=== PATIENT | male | born 1980 | race Caucasian/White ===

== ENCOUNTER 2020-03-26 17:10 | Emergency (ER) | payer OTHER, SELFPAY ==
[2020-03-26 17:17] VITALS: BP 138/87; PULSE 94; RESP 18; TEMP 37.2; O2SAT 100
--- NOTE | 2020-03-26 17:17 | ED.DENTAL ---
HPI - Dental/Oral General Chief complaint: Dental/Oral Stated complaint: tooth pain Time Seen by Provider: 03/26/20 17:17 Source: patient and RN notes reviewed History of Present Illness HPI Narrative: Patient is a 40-year-old male who presents the urgent care with complaints of right lower dental pain. Patient states that it started a few days ago and has been off and on. Patient states that the last time his tooth became infuck-ed he was able to see a physician at the [facility] who prescribed him tramadol and penicillin. Patient states that he has still been unable to get into a dentist to have the tooth fixed. States that originally had an amalgam filling which they switched out for composite, which in turn fell out. States that the pain does radiate up the right side of the neck and into the right ear. Denies of any fever, nausea, vomiting. No other acute complaints. No acute distress noted. Patient aware of the plan of care. Some parts of this dictation were generated by voice recognition software and may contain typographical and/or grammatical inaccuracies. Related Data Allergies Allergy/AdvReac Type Severity Reaction Status Date / Time codeine Allergy Mild N/V Verified 04/18/16 19:25 naproxen Allergy Unknown stomach Verified 04/18/16 19:25 problems Review of Systems Review of Systems: Narrative: CONSTITUTIONAL: Denies fever, chills, or sweats. EYES: Denies visual changes, redness, or discharge. ENT: Denies rhinorrhea, congestion, sore throat. Reports of right lower dental pain radiating to the right ear CARDIOVASCULAR: Denies chest pain, palpitations, or edema. RESPIRATORY: Denies cough or dyspnea. GASTROINTESTINAL: Denies abdominal pain, nausea, vomiting, or diarrhea. GENITOURINARY: Denies dysuria or hematuria. SKIN: Denies rash or itching. MUSCULOSKELETAL: Denies back pain, joint pain, or myalgia. NEUROLOGIC: Denies headache, numbness, or weakness. All other systems reviewed are negative, except as documented in HPI. PMFSH Social History Social History Gender identity (if verbalized by the patient): Male Comments At the time of my signature, I reviewed and agree with the nursing past medical, surgical, social, and family history. There is no relevant family history pertinent to the patient complaint. Exam Narrative: Exam Narrative: GENERAL: This is a well-nourished, well-developed patient, in no apparent distress. HEAD: normocephalic, atraumatic. EYES: PERRL. Sclera clear/white. Vision is grossly intact. EARS: External ears normal, auditory canals clear and without drainage, TMs normal without perforation. Hearing grossly intact. NOSE: External nose normal with no obvious nasal discharge, nares without redness, no rhinorrhea. THROAT: Mucous membranes moist, posterior pharynx clear. DENTAL: Notable avulsion to the posterior buccal aspect of right lower first molar with mild surrounding erythema and edema NECK: Neck supple SKIN: warm, intact with no suspicious lesions or rash, good texture and turgor. NEURO: awake, alert, and oriented to person, place and time. There were no obvious focal neurologic abnormalities. EXTREMITIES: No clubbing, cyanosis, or edema. Course Vital Signs Vital signs: Vital Signs Temperature 99 F 03/26/20 17:17 Pulse Rate 94 03/26/20 17:17 Respiratory Rate 18 03/26/20 17:17 Blood Pressure 138/87 03/26/20 17:17 Pulse Oximetry 100 03/26/20 17:17 Temperature 99 F 03/26/20 17:17 Pulse Rate 94 03/26/20 17:17 Respiratory Rate 18 03/26/20 17:17 Blood Pressure 138/87 03/26/20 17:17 Pulse Oximetry 100 03/26/20 17:17 Reviewed MDM - Dental/Oral MDM Narrative Medical decision making narrative: Advised the patient to complete oral antibiotic regimen as prescribed. Use tramadol as needed for pain. Do not take tramadol in conjunction with [id number] ibuprofen or other NSAIDs. Make sure to eat and drink with the medication. Continue your mouthwash
== END 2020-03-26 17:46 | disposition home or self-care (01) ==
PROVIDERS: Emergency Provider Nurse Practitioner Family
DX: K04.7 Periapical abscess without sinus (principal)
CPT/HCPCS: 99203; G0463

== ENCOUNTER 2021-10-10 13:57 | Emergency (ER) | payer OTHER, SELFPAY ==
[2021-10-10 14:04] VITALS: BP 137/83; PULSE 68; RESP 16; TEMP 36.2; O2SAT 100
--- NOTE | 2021-10-10 16:21 | ED.DENTAL ---
HPI - Dental/Oral General Chief complaint: Dental/Oral Stated complaint: dental pain Time Seen by Provider: 10/10/21 15:50 Source: RN notes reviewed History of Present Illness HPI Narrative: Patient presents emergency room from home for dental pain. Patient states that he has a carious tooth that it had a temporary filling that had fallen out last week states he had increased pain in his tooth which is located the right lower molar states has been seeing the dentist at the [facility] but they have been hard to get into and there had been plans for a root canal he denies any fevers or chills he states he does have some occasional green discharge from the tooth he denies any swelling of the face or any other symptoms states has been taking Tylenol for the pain at home with minimal relief Related Data Allergies Allergy/AdvReac Type Severity Reaction Status Date / Time codeine Allergy Mild N/V Verified 04/18/16 19:25 naproxen Allergy Unknown stomach Verified 04/18/16 19:25 problems Review of Systems Review of Systems: Gen.: Denies fevers or chills HEENT: See HPI Neuro: Denies headache Skin: Denies rash Endo: Denies DM PMFSH Past Medical History Medical History (Updated 10/10/21 @ 16:23 by Marin Oquendo DO) Patient denies significant medical history Social History Social History (Updated 10/10/21 @ 16:22 by Marin Oquendo DO) Smoking status: Never smoker Gender identity (if verbalized by the patient): Male Exam Narrative: APPEARANCE: No acute distress, nontoxic, resting in bed HEENT: Normocephalic, atraumatic, TMs clear bilaterally, nares patent, oral mucosa moist, airway patent, tooth #31 is carious and tender to palpation mild erythema with no exudate or fluctuance of the gum RESPIRATORY: No respiratory distress MUSCULOSKELETAl: Moves all extremities. NEURO: Awake and alert. Following commands, speech normal, no focal deficits SKIN:: Warm, dry. Normal Color PSYCHIATRIC: Normal affect/mood Course Course Emergency Course: Discussed with patient results of workup and diagnosis. Discussed need for follow-up with primary care, proper use of medication, and reasons to return to the emergency department. Patient understands and agrees to current treatment plan Patient states has been taking Tylenol for pain at home states he is unable to take NSAIDs secondary to having a previous injury in which part of his bowels had to be removed this time reviewed the patient's been on tramadol for we will give 6 short amount of tramadol for his pain Vital Signs Vital signs: Vital Signs Temperature 97.2 F L 10/10/21 14:04 Pulse Rate 68 10/10/21 14:04 Respiratory Rate 16 10/10/21 14:04 Blood Pressure 137/83 10/10/21 14:04 Pulse Oximetry 100 10/10/21 14:04 Oxygen Delivery Room Air 10/10/21 14:04 Temperature 97.2 F L 10/10/21 14:04 Pulse Rate 68 10/10/21 14:04 Respiratory Rate 16 10/10/21 14:04 Blood Pressure 137/83 10/10/21 14:04 Pulse Oximetry 100 10/10/21 14:04 Oxygen Delivery Room Air 10/10/21 14:04 Discharge Plan Discharge Clinical Impression: Dental caries, Dental abscess Patient Disposition: Home, Self-Care Condition: Stable Instructions: Antibiotic Form, Dental Abscess (ED) Additional Instructions: Return for increasing pain fever or any other symptoms of concern Prescriptions: New penicillin V potassium 500 mg tablet 500 mg PO TID Qty: 40 0RF tramadol 50 mg tablet 50 mg PO Q4H PRN (Reason: pain) Qty: 6 0RF No Action tramadol 50 mg tablet 50 mg PO Q6H PRN (Reason: pain) Qty: 5 0RF amoxicillin-pot clavulanate [Augmentin] 875-125 mg tablet 1 tablet PO Q12H Qty: 20 0RF Follow-up/Referrals: [facility] [place] [Outside] [facility] [Outside] - 2 Days [facility] [Primary Care Provider] - Stand Alone Forms: Work/School Release IP Time of Disposition: 16:24
[2021-10-10] MEDS: PENICILLIN V POTASSIUM 250 MG TABLET 500 MG PO (16:37)
[2021-10-10] MEDS: HYDROcodone/acetaminophen (*CRX) 5-325 MG TABLET 1 TAB PO (16:37)
== END 2021-10-10 16:40 | disposition home or self-care (01) ==
PROVIDERS: Emergency Provider Emergency Medicine
DX: K04.7 Periapical abscess without sinus (principal); K02.9 Dental caries, unspecified
CPT/HCPCS: 99283; A9270

== ENCOUNTER 2023-11-21 18:08 | Emergency (ER) | payer OTHER, SELFPAY ==
--- NOTE | ~2023-11-21 | XR_ITS ---
XR shoulder LT min 2V Ordering provider: Eddie Whitten MD History: . biceps injury . Comparison: September 20, 2008 FINDINGS: BONES: No acute fracture or dislocation. Ossifications seen in the inferior aspect of the glenoid cav ity and adjacent to the humeral head which may be due to old fracture or synovitis chondromatosis. JOINT SPACES: The acromioclavicular joint is normal. The glenohumeral joint is normal. The SOFT TISSUES: Normal. IMPRESSION: No acute osseous abnormality left shoulder. Reviewed, dictated and finalized at location A.
[2023-11-21 18:30] VITALS: BP 131/97; PULSE 93; RESP 16; TEMP 36.4; O2SAT 100
--- NOTE | 2023-11-21 20:42 | ED.GENADULT ---
HPI - General Adult General Chief complaint: Extremity Injury, Upper Stated complaint: bicep injury Time Seen by Provider: 11/21/23 19:54 History of Present Illness HPI narrative: Patient is a 43-year-old male who presents ER with concerns for biceps injury on left side. 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 There is obvious deformity with the lack of tendon over the proximal aspect of the left upper extremity. No shoulder pain. No numbness or tingling. Related Data Allergies Allergy/AdvReac Type Severity Reaction Status Date / Time codeine Allergy Mild N/V Verified 04/18/16 19:25 naproxen Allergy Unknown stomach Verified 04/18/16 19:25 problems Review of Systems Constitutional: Constitutional: Reports no additional constitutional complaints Gastrointestinal: Gastrointestinal: Reports no additional gastrointestinal complaints Genitourinary: Genitourinary: Reports no additional male genitourinary complaints Musculoskeletal: Musculoskeletal: Denies arthralgias, Denies joint swelling and Reports muscle cramps Integumentary/Breasts: Skin/Breast: Reports system reviewed and no additional complaints, except as docu PMFSH Past Medical History Medical History (Updated 11/21/23 @ 20:57 by Eddie Whitten MD) Patient denies significant medical history Social History Social History (Updated 10/10/21 @ 16:22 by Marin Oquendo, DO) Smoking status: Never smoker Gender identity (if verbalized by the patient): Male Exam Narrative: GENERAL: Well-appearing, well-nourished, and in no acute distress. HEAD: Normocephalic, atraumatic. ENT: Mucous membranes moist. EXTREMITIES: Left upper extremity with biceps deformity proximally when flexing at the elbow. Tender over the area and has pain with range of motion. No deformity at the elbow. Normal right upper extremity. SKIN: Warm, dry, no rash. NEURO: Alert and oriented x3. PSYCH: Normal mood and affect. Course Course Emergency Course: [facility] and say they are only open for transfers regarding psychiatric care. Patient given [place] for pain and will be placed in a sling for comfort. I will give him our orthopedics phone number so he can attempt to follow[facility]up if [facility] issues with [facility]. Vital Signs Vital signs: Vital Signs Temperature 97.6 F 11/21/23 18:30 Pulse Rate 93 11/21/23 18:30 Respiratory Rate 16 11/21/23 18:30 Blood Pressure 131/97 H 11/21/23 18:30 Pulse Oximetry 100 11/21/23 18:30 Oxygen Delivery Room Air 11/21/23 18:30 Temperature 97.6 F 11/21/23 18:30 Pulse Rate 93 11/21/23 18:30 Respiratory Rate 16 11/21/23 18:30 Blood Pressure 131/97 H 11/21/23 18:30 Pulse Oximetry 100 11/21/23 18:30 Oxygen Delivery Room Air 11/21/23 18:30 Medical Decision Making Vital Signs Vital Signs: Vital Signs Temperature 97.6 F 11/21/23 18:30 Pulse Rate 93 11/21/23 18:30 Respiratory Rate 16 11/21/23 18:30 Blood Pressure 131/97 H 11/21/23 18:30 Pulse Oximetry 100 11/21/23 18:30 Oxygen Delivery Room Air 11/21/23 18:30 Temperature 97.6 F 11/21/23 18:30 Pulse Rate 93 11/21/23 18:30 Respiratory Rate 16 11/21/23 18:30 Blood Pressure 131/97 H 11/21/23 18:30 Pulse Oximetry 100 11/21/23 18:30 Oxygen Delivery Room Air 11/21/23 18:30 Imaging Data Radiologist's impression: ITS Impressions Shoulder X-Ray 11/21/23 20:32 IMPRESSION: No acute osseous abnormality left shoulder. Discharge Plan Discharge Clinical Impression: Biceps rupture, proximal Patient Disposition: Home, Self-Care Condition: Stable Instructions: Repairs of the Biceps and Triceps Tendons (DC), Tendon Rupture (ED) Additional Instructions: Contact your PCP to be referred to a new orthopedist at the [facility]. You may also use a private orthopedic surgeon her
[2023-11-21] MEDS: HYDROcodone/acetaminophen (*CRX) 5-325 MG TABLET 1 TAB PO (20:50)
[2023-11-21 21:06] VITALS: BP 121/81; PULSE 93; O2SAT 100
== END 2023-11-21 20:30 | disposition home or self-care (01) ==
PROVIDERS: Emergency Provider Emergency Medicine
DX: S46.212A Strain of muscle, fascia and tendon of other parts of biceps, left arm, initial encounter (principal); X50.0XXA Overexertion from strenuous movement or load, initial encounter
CPT/HCPCS: 73030; 99283; A4565; A9270

== ENCOUNTER 2025-03-04 13:52 | Emergency (ER) | payer OTHER, SELFPAY ==
--- NOTE | ~2025-03-04 | XR_ITS ---
EXAMINATION: XR shoulder LT min 2V, 03/04/2025 14:35 CDT HISTORY: shoulder pain-ant/pos COMPARISON: No comparisons available. Findings: No acute fracture or malalignment. Severe degenerative changes with calcified loose bodies noted. Soft tissues unremarkable. Impression: No acute fracture or malalignment. Reviewed, dictated and finalized at location P. Impression: No acute fracture or malalignment.
[2025-03-04 13:54] VITALS: BP 138/83; PULSE 83; RESP 16; TEMP 36.6; O2SAT 100
--- NOTE | 2025-03-04 14:32 | ED.UPPEXIN ---
HPI - Extremity Injury (Upper) General Chief Complaint: Extremity Injury, Upper Stated Complaint: left shoulder pain Time Seen by Provider: 03/04/25 14:02 Source: patient Mode of arrival: ambulatory Limitations: no limitations History of Present Illness HPI narrative: Tj is a 44-year-old male patient presenting to the ER today with complaints of left shoulder pain. Reports he was standing on a ladder and started to slip in clotting self with his left arm. Is complaining of pain to the anterior and posterior right shoulder. Had taking 1 hydrocodone 1 hour prior to arrival. Is having difficulty lifting his arm due to pain. Denies any neck pain. Rates pain currently an 8/10. History of left biceps tear. Related Data Allergies Allergy/AdvReac Type Severity Reaction Status Date / Time codeine Allergy Mild N/V Verified 03/04/25 13:55 naproxen Allergy Unknown stomach Verified 03/04/25 13:55 problems Review of Systems Review of Systems: Pertinent positives per HPI. Patient denies any fever, chills, rash, headache, visual changes, dizziness, cough, runny nose, sore throat, shortness of breath, chest pain, palpitations, nausea, vomiting, diarrhea, constipation, abdominal pain, or any urinary issues. [facility] Past Medical History Medical History Patient denies significant medical history Social History Social History Smoking status: Never smoker Gender identity (if verbalized by the patient): Male Comments At the time of my signature, I reviewed and agree with the nursing past medical, surgical, social, and family history. There is no relevant family history pertinent to the patient complaint. Exam Narrative: General: Well-developed, well nourished, in no apparent distress Head: Normocephalic, atraumatic. Cardio: Regular rate and rhythm, s1 and s2 normal, no murmur appreciated. Resp: Clear to auscultation bilaterally, no rhonchi, rales, wheezing or rubs. Musculoskeletal: No deformity, tender to palpation over the anterior and posterior left shoulder, unable to raise is arm above his head due to pain, limited range of motion due to pain, negative drop-arm test, hand grasp slightly weaker on the left when compared to the right, peripheral pulse strong, no edema, no cyanosis, normal gait and station Course Course Emergency Course: Portions of this record may have been created with voice recognition software. Vital Signs Vital signs: Vital Signs Temperature 36.6 C 03/04/25 13:54 Pulse Rate 83 03/04/25 13:54 Respiratory Rate 16 03/04/25 13:54 Blood Pressure 138/83 03/04/25 13:54 Pulse Oximetry 100 03/04/25 13:54 Temperature 36.6 C 03/04/25 13:54 Pulse Rate 83 03/04/25 13:54 Respiratory Rate 16 03/04/25 13:54 Blood Pressure 138/83 03/04/25 13:54 Pulse Oximetry 100 03/04/25 13:54 Vital signs reviewed MDM - Extremity Injury (Upper) MDM Narrative Medical decision making narrative: At the time of visit patient is resting comfortably on the exam table. Patient appears to be nontoxic. Complaints of left shoulder pain. Reports he was standing on a ladder and started to slip in clotting self with his left arm. Is complaining of pain to the anterior and posterior right shoulder. Had taking 1 hydrocodone 1 hour prior to arrival. Is having difficulty lifting his arm due to pain. Denies any neck pain. Rates pain currently an 8/10. History of left biceps tear. On exam patient has tenderness to palpation over the anterior and posterior shoulder, is unable to lift his arm up above his head due to pain. Has good peripheral pulse, hand grasp in the left hands slightly weaker than the right hand. Diagnostics: X-ray of the left shoulder is negative for any acute fracture or malalignment. Does show severe degenerative changes Plan: I suspect patient has a left arm muscle strain. Will send in prescription for hydrocodone for pain. Arm sling was given. Supportive measures were discussed with the patient and they voiced understanding discharge instructions and agrees to treatment plan. Return precautions reviewed Differential Diagnosis Differential diagnosis: Likely dislocation of shoulder and other (Shoulder strain, shoulder sprain, AC joint separation, humerus fracture, rotator cuff injury) Imaging Data Radiologist's impression: ITS Impressions Shoulder X-Ray 03/04/25 14:50 Impression: No acute fracture or malalignment. Discharge Plan Discharge Clinical Impression: Strain of left shoulder Patient Disposition: Home Condition: Stable Instructions: Antibiotic Form, Shoulder Sprain (ED) Additional Instructions: X-ray shows no acute fracture or malalignment of the left shoulder-does show some severe degenerative changes Rest, ice, elevate, and wear arm sling as directed Tylenol/motrin for pain as discussed for minimal to moderate pain May take hydrocodone as needed for moderate to severe pain Follow up with your PCP in 5-7 days if symptoms persist-may need further imaging such as an MRI to rule out rotator cuff tear. Patient Language: Welsh Prescriptions: New hydrocodone-acetaminophen 7.5-325 mg tablet 1 tablet PO Q8H PRN (Reason: pain) 5 Days Qty: 15 0RF No Action tramadol 50 mg tablet 50 mg PO Q6H PRN (Reason: pain) Qty: 5 0RF amoxicillin-pot clavulanate [Augmentin] 875-125 mg tablet 1 tablet PO Q12H Qty: 20 0RF penicillin V potassium 500 mg tablet 500 mg PO TID Qty: 40 0RF tramadol 50 mg tablet 50 mg PO Q4H PRN (Reason: pain) Qty: 6 0RF hydrocodone-acetaminophen 5-325 mg tablet 1 tablet PO Q6H PRN (Reason: pain) Qty: 20 0RF Follow-up/Referrals: [facility] [Primary Care Provider, Medical] Time of Disposition: 15:20 Quality NIHSS Nursing Documentation ED NIHSS nursing documentation: reviewed/agree
--- OUTSIDE RECORDS SUMMARY | 2025-03-04 15:33 | XMS_ITS | Clinical Summary ---
Author Organization [facility] [address] Address [address] [place] [address] Phone Care Team Providers Care Nurse Advisor Name Role Phone Jose Florez MD Primary Care Provider Allergies Active Allergy Reactions Criticality Noted Date Comments Nsaids (Non-Steroidal Anti-Inflammatory Drug) Nausea & Vomiting Low 01/18/2016 Medications traMADol (ULTRAM) 50 mg tablet take 1 tablet by oral route every 6 hours as needed 40 0 10/27/2015 Active Active Problems Problem Noted Date Diagnosed Date Pain in wrist 01/18/2016 Surgical History Surgery Date Site/Laterality Comments OTHER SURGICAL HISTORY Left shoulder bankart repair x2 OTHER SURGICAL HISTORY 10 inches of bowel removed post trauma Medical History Medical History Date Comments Arthritis Arthritis Hypertension Hypertension Pure hypercholesterolemia High b lood cholesterol level - (Added by TW Conv) Family History Medical History Relation Name Comments Arthritis Father Family history of arthritis - (Added by TW Conv) Arthritis Mother Family history of arthritis - (Added by TW Conv) Diabetes Mother Family history of diabetes mellitus - (Added by TW Conv) Heart disease Mother Family history of cardiovascular disease - (Added by TW Conv) Hypertension Mother Family history of hypertension - (Added by TW Conv) Mental illness Mother FH: mental il lness - (Added by TW Conv) Relation Name Status Comments Father Mother Social History Tobacco Use Types Packs/Day Years Used Date Smoking Tobacco: Never Smokeless Tobacco: Never Sex and Gender Information Value Date Recorded Sex Assigned at Not on file 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 Gender Identity Not on file Sexual Orientation Not on file Obstetrics History Last Filed Vital Signs Vital Sign Reading Time Taken Comments Blood Pressure 118/64 10/27/2015 8:47 AM CDT Pulse - - Temperature - - Respiratory Rate - - Oxygen Saturation - - Inhaled Oxygen Concentration - - Weight 80.7 kg (178 lb) 02/27/2024 8:47 AM CDT Height 167.6 cm (5' 6) 02/27/2024 8:47 AM CDT Body Mass Index 28.73 02/27/2024 8:47 AM CDT Plan of Treatment Health Maintenance Due Date Last Done Comments Depression Screening 1980 Hepatitis C Screening 1980 Varicella Vaccines (1 of 2 - 13+ 2-dose series) 1993 Hepatitis B Screening 1998 Regular Well Visit/Exam 1998 HPV Vaccines (1 - 3-dose SCD M series) 2007 DTaP/Tdap/Td Vaccine (2 - Td or Tdap) 02/16/2022 02/17/2012 Influenza Vaccine (#1) 2025 Pneumococcal vaccine <65 Aged Out No longer eligible based on patient's age to complete this topic [place] [address] [place] [address] [place] [address] [facility] Care Teams Nurse Advisor Relationship Specialty Start Date End Date Jose Florez MD [address] [place] [address] PCP - General Med 12/25/23
--- OUTSIDE RECORDS SUMMARY | 2025-03-04 16:50 | XMS_ITS | Clinical Summary ---
Author Organization [facility] [address] Address [address] 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
== END 2025-03-04 15:37 | disposition home or self-care (01) ==
PROVIDERS: Emergency Provider Nurse Practitioner Family
DX: S46.912A Strain of unspecified muscle, fascia and tendon at shoulder and upper arm level, left arm, initial encounter (principal); W11.XXXA Fall on and from ladder, initial encounter
CPT/HCPCS: 73030; 99283; A4565